=== PATIENT | male | born 1945 | race Caucasian/White ===

== ENCOUNTER → 2016-04-19 | Outpatient (CLI) | payer MEDICARE ==
[~2016-04-19] MED LIST: ASP81CT PO; ASPI-875 PO; ATR20T PO; MTP25TSR PO; TICA90TA PO
--- NOTE | 2016-04-25 07:51 | ECHOCARDIOGRAPHY REPORT ---
PROCEDURE PHYSICIAN: GREGG SEQUEIRA DATE OF PROCEDURE: 04/19/2016 TWO DIMENSIONAL ECHOCARDIOGRAM REPORT PRIMARY PHYSICIAN: Dr. Strong OTHER PHYSICIAN: Dr. Sequeira REFERRING PHYSICIAN: ORDERING PHYSICIAN: Isela Toro APRN INDICATION FOR THE PROCEDURE: 1. Shortness of breath. 2. Coronary artery disease. 3. Chronic obstructive pulmonary disease. MEASUREMENTS DERIVED VALUES LV DIAMETER (LAX) NORMALS NORMALS Diastolic 5.3 (3.6-5.2) Eject. Fract. (60%+/-6%) Systolic (2.3-3.9) Diastolic Vol. % Shortening (0.22-0.42) Systolic Vol. Aortic Root 3.7 IVS THICKNESS Diastolic 1.1 (0.6-1.1) LVPW THICKNESS Diastolic 1.2 (0.6-1.1) LA DIAMETER Systolic 3.7 (2.1-3.7) DESCRIPTION: Two-dimensional echocardiography shows normal global left ventricular systolic function without distinct regional wall motion abnormality. This study is technically somewhat difficult and not ideal for wall motion analysis. On the views available, there does not appear to be distinct regional wall motion abnormality. There appears to be mild aortic valve sclerosis. Doppler imaging shows trivial to mild mitral, aortic and tricuspid regurgitation. Mitral inflow is consistent with grade 1 diastolic dysfunction of the left ventricle. There is no Doppler evidence of significant valvular stenosis. There is no evidence of significant intracardiac shunt. Inferior vena cava does not appear to be dilated. Pulmonary artery systolic pressure could not be reliably estimated on this study. CONCLUSIONS: 1. Normal global left ventricular systolic function with an ejection fraction of approximately 60%. 2. Trivial to mild mitral, tricuspid and aortic regurgitation. 3. Mild aortic valve sclerosis without evidence of significant valvular stenosis. 4. Mild diastolic dysfunction of the left ventricle is suggested on this study. Job ID: [id number] Dictated Date: 04/24/2016 13:44:30 Health Safety And Environment Manager Date: 04/25/2016 07:42:36 / [email or web address]
== END ==
LOC: CARD 13:51
PROVIDERS: ATTEND Nurse Practitioner Family
DX: I25.10 Atherosclerotic heart disease of native coronary artery without angina pectoris (principal); E78.4 Other hyperlipidemia; J43.8 Other emphysema; R06.09 Other forms of dyspnea
CPT/HCPCS: 93306

== ENCOUNTER → 2017-08-13 | Outpatient (CLI) | payer MEDICARE | LOC: CARD 08:55 | PROVIDERS: ATTEND Internal Medicine Cardiovascular Disease | DX: I25.10 Atherosclerotic heart disease of native coronary artery without angina pectoris (principal); E78.5 Hyperlipidemia, unspecified | CPT/HCPCS: 93351 ==

== ENCOUNTER 2018-01-20 09:51 | Outpatient (CLI) | payer MEDICARE ==
[~2018-01-20] VITALS: Ht 170.2 cm; Wt 78.0 kg
[2018-01-20] MEDS ORDERED: METO-387 PO (15:17)
[2018-01-20] MEDS ORDERED: ASPI-999 PO (15:17)
[2018-01-20] MEDS ORDERED: ATOR40TA70 PO (15:17)
== END 2018-01-20 15:18 | disposition home or self-care (01) ==
LOC: PREOP 09:51
PROVIDERS: ATTEND Surgery
DX: Z01.818 Encounter for other preprocedural examination (principal)

== ENCOUNTER 2018-01-22 10:53 | Day surgery (SDC) | payer MEDICARE ==
[~2018-01-22] VITALS: Ht 170.2 cm; Wt 78.0 kg
[~2018-01-22 10:53] MED LIST changes: +ASPI-999 PO; +ATOR40TA70 PO; +METO-387 PO
--- OUTSIDE RECORDS SUMMARY | 2018-01-22 10:57 | XMS REPORT | Continuity of Care Document ---
Author Author [facility] Organization [facility] Address Unknown Phone Unavailable Allergies Active Description Code Type Severity Reaction Onset Reported/Identified Relationship to Patient Clinical Status Yes No Known Drug Allergies [id number] Drug Allergy Unknown N/A 03/20/2012 Medications There is no data. Problems Date Dx Coded Attending Type Code Diagnosis Diagnosed By 04/02/2012 Ot 272.4 HYPERLIPIDEMIA NEC/NOS 04/02/2012 Ot 414.01 CORONARY ATHEROSCLEROSIS OF [place] CORON 04/02/2012 Ot 477.9 ALLERGIC RHINITIS NOS 04/02/2012 Ot 794.30 ABN CARDIOVASC STUDY NOS 04/02/2012 Ot V17.49 FAMILY HISTORY OF OTHER CARDIOVASCULAR D 04/02/2012 Ot V58.66 LONG-TERM ( CURRENT) USE OF ASPIRIN 04/02/2012 Ot V58.69 OTH MED,LT, CURRENT USE 06/24/2012 ROCK NANCE MD Ot 414.01 CORONARY ATHEROSCLEROSIS OF [place] CORON 06/24/2012 ROCK NANCE MD Ot 414.2 CHRONIC TOTAL OCCLUSION OF CORONARY ANKIT 06/24/2012 ROCK NANCE MD Ot 786.59 CHEST PAIN NEC 06/24/2012 ROCK NANCE MD Ot V45.82 PERCUTANEOUS TRANSLUM CORON ANGIOPLASTY 06/24/2012 ROCK NANCE MD Ot V58.63 LONG-TERM(CURRENT)USE OF ANTIPLATELET/AN 06/24/2012 ROCK NANCE MD Ot V58.66 LONG-TERM (CURRENT) USE OF ASPIRIN 06/24/2012 ROCK NANCE MD Ot V58.69 OTH MED,LT,CURRENT USE 10/17/2015 BAIMAKATHERINE L CUPOLA OPERATOR Ot E78.4 OTHER HYPERLIPIDEMIA 10/17/2015 BAIMA KATHERINE L CUPOLA OPERATOR Ot I25.10 ATHSCL HEART DISEASE OF [place] CORONARY 10/17/2015 BAIMAKATHERINE L CUPOLA OPERATOR Ot R06.00 DYSPNEA, UNSPECIFIED 10/25/2015 BAIMA KATHERINE L CUPOLA OPERATOR Ot E78.4 OTHER HYPERLIPIDEMIA 10/25/2015 BAIMA, KATHERINE L CUPOLA OPERATOR Ot I25.10 ATHSCL HEART DISEASE OF [place] CORONARY 10/25/2015 BAIMA, KATHERINE L CUPOLA OPERATOR Ot R06.00 DYSPNEA, UNSPECIFIED 11/10/2015 BAIMA, KATHERINE L CUPOLA OPERATOR Ot E78.4 OTHER HYPERLIPIDEMIA 11/10/2015 BAIMA, KATHERINE L CUPOLA OPERATOR Ot I25.10 ATHSCL HEART DISEASE OF [place] CORONARY 11/10/2015 BAIMA, KATHERINE L CUPOLA OPERATOR Ot R06.00 DYSPNEA, UNSPECIFIED 03/08/2016 Ot 786.50 CHEST PAIN NOS 03/08/2016 SHAWN HUITRON CUPOLA OPERATOR Ot 786.05 SHORTNESS OF BREATH 03/08/2016 BAIMA, KATHERINE L CUPOLA OPERATOR Ot E78.4 OTHER HYPERLIPIDEMIA 03/08/2016 BAIMA, KATHERINE L CUPOLA OPERATOR Ot I25.10 ATHSCL HEART DISEASE OF [place] CORONARY 03/08/2016 BAIMA, KATHERINE L CUPOLA OPERATOR Ot R06.00 DYSPNEA, UNSPECIFIED 03/09/2016 BAIMA, KATHERINE L CUPOLA OPERATOR Ot E78.4 OTHER HYPERLIPIDEMIA 03/09/2016 BAIMA, KATHERINE L CUPOLA OPERATOR Ot I25.10 ATHSCL HEART DISEASE OF [place] CORONARY 03/09/2016 BAIMA, KATHERINE L CUPOLA OPERATOR Ot R06.00 DYSPNEA, UNSPECIFIED 03/20/2016 BAIMA, KATHERINE L CUPOLA OPERATOR Ot E78.4 OTHER HYPERLIPIDEMIA 03/20/2016 BAIMA, KATHERINE L CUPOLA OPERATOR Ot I25.10 ATHSCL HEART DISEASE OF [place] CORONARY 03/20/2016 BAIMA, KATHERINE L CUPOLA OPERATOR Ot R06.00 DYSPNEA, UNSPECIFIED 04/19/2016 BAIMA, KATHERINE L CUPOLA OPERATOR Ot E78.4 OTHER HYPERLIPIDEMIA 04/19/2016 BAIMA, KATHERINE L CUPOLA OPERATOR Ot I25.10 ATHSCL HEART DISEASE OF [place] CORONARY 04/19/2016 BAIMA, KATHERINE L CUPOLA OPERATOR Ot R06.00 DYSPNEA, UNSPECIFIED 04/20/2016 BAIMA, KATHERINE L CUPOLA OPERATOR Ot E78.4 OTHER HYPERLIPIDEMIA 04/20/2016 BAIMA, KATHERINE L CUPOLA OPERATOR Ot I25.10 ATHSCL HEART DISEASE OF [place] CORONARY 04/20/2016 BAIMA, KATHERINE L CUPOLA OPERATOR Ot J43.8 OTHER EMPHYSEMA 04/20/2016 BAIMA, KATHERINE L CUPOLA OPERATOR Ot R06.09 OTHER FORMS OF DYSPNEA 04/24/2016 BAIMA, KATHERINE L CUPOLA OPERATOR Ot E78.4 OTHER HYPERLIPIDEMIA 04/24/2016 BAIMA, KATHERINE L CUPOLA OPERATOR Ot I25.10 ATHSCL HEART DISEASE OF [place] CORONARY 04/24/2016 BAIMA, KATHERINE L CUPOLA OPERATOR Ot J43.8 OTHER EMPHYSEMA 04/24/2016 BAIMA, KATHERINE L CUPOLA OPERATOR Ot R06.09 OTHER FORMS OF DYSPNEA 05/17/2016 BAIMA, KATHERINE L CUPOLA OPERATOR Ot E78.4 OTHER HYPERLIPIDEMIA 05/17/2016 BAIMA, KATHERINE L CUPOLA OPERATOR Ot I25.10 ATHSCL HEART DISEASE OF [place] CORONARY 05/17/2016 BAIMA, KATHERINE L CUPOLA OPERATOR Ot J43.8 OTHER EMPHYSEMA 05/17/2016 BAIMA, KATHERINE L CUPOLA OPERATOR Ot R06.09 OTHER FORMS OF DYSPNEA 05/24/2016 BAIMA, KATHERINE L CUPOLA OPERATOR Ot E78.4 OTHER HYPERLIPIDEMIA 05/24/2016 BAIMA, KATHERINE L CUPOLA OPERATOR Ot I25.10 ATHSCL HEART DISEASE OF [place] CORONARY 05/24/2016 BAIMA, KATHERINE L CUPOLA OPERATOR Ot J43.8 OTHER EMPHYSEMA 05/24/2016 BAIMA, KATHERINE L CUPOLA OPERATOR Ot R06.09 OTHER FORMS OF DYSPNEA 06/19/2016 Ot 786.50 CHEST PAIN NOS 06/19/2016 SHAWN HUITRON CUPOLA OPERATOR Ot 786.05 SHORTNESS OF BREATH 06/19/2016 BAIMA, KATHERINE L CUPOLA OPERATOR Ot E78.4 OTHER HYPERLIPIDEMIA 06/19/2016 BAIMA, KATHERINE L CUPOLA OPERATOR Ot I25.10 ATHSCL HEART DISEASE OF [place] CORONARY 06/19/2016 BAIMA, KATHERINE L CUPOLA OPERATOR Ot R06.00 DYSPNEA, UNSPECIFIED 07/24/2017 BAIMA, KATHERINE L CUPOLA OPERATOR Ot E78.4 OTHER HYPERLIPIDEMIA 07/24/2017 BAIMA, KATHERINE L CUPOLA OPERATOR Ot I25.10 ATHSCL HEART DISEASE OF [place] CORONARY 07/24/2017 BAIMA, KATHERINE L CUPOLA OPERATOR Ot J43.8 OTHER EMPHYSEMA 07/24/2017 BAIMA, KATHERINE L CUPOLA OPERATOR Ot R06.09 OTHER FORMS OF DYSPNEA 08/15/2017 LAURENCE MICHAELS FACC, ALI FACP CCDS Ot E78.5 HYPERLIPIDEMIA, UNSPECIFIED 08/15/2017 LAURENCE MICHAELS FACC, ALI FACP CCDS Ot I25.10 ATHSCL HEART DISEASE OF [place] CORONARY 09/03/2017 LAURENCE MICHAELS FACC, ALI FACP CCDS Ot E78.5 HYPERLIPIDEMIA, UNSPECIFIED 09/03/2017 LAURENCE MICHAELS FACC, ALI FACP CCDS Ot I25.10 ATHSCL HEART DISEASE OF [place] CORONARY 09/20/2017 LAURENCE MICHAELS FACC, ALI FACP CCDS Ot E78.5 HYPERLIPIDEMIA, UNSPECIFIED 09/20/2017 LAURENCE MICHAELS FACC, ALI FACP CCDS Ot I25.10 ATHSCL HEART DISEASE OF [place] CORONARY Procedures There is no data. Results There is no data. Encounters ACCT No. Visit Date/Time Discharge Status Pt. Type Provider Facility Loc./Unit Complaint [id number] 12/26/2017 13:00:00 12/26/2017 13:00:00 CAN Preadmit ALTAGRACIA MANCILLA MD [facility] PREOP COLONOSCOPY [id number] 08/13/2017 08:55:00 08/13/2017 23:59:59 CLS Outpatient GREGG DANG MD, FACC FACP CCDS [facility] CARD I25.10 CAD [id number] 04/19/2016 13:51:00 04/19/2016 23:59:59 CLS Outpatient KATHERINE FRIAS CUPOLA OPERATOR [facility] CARD COPD,[place],CAD [id number] 10/11/2015 11:51:00 10/11/2015 23:59:59 CLS Outpatient KATHERINE FRIAS CUPOLA OPERATOR [facility] CARD CAD; DYSPNEA [id number] 07/30/2012 13:50:00 07/30/2012 23:59:59 CLS Outpatient SHAWN HUITRON CUPOLA OPERATOR [facility] CARD SOB [id number] 06/23/2012 07:03:00 06/24/2012 09:40:00 DIS Outpatient ROCK NANCE MD [facility] CAD,HYPERLIPIDEMIA [id number] 04/01/2012 06:56:00 Document Registration [id number] 03/20/2012 07:58:00 Document Registration
[2018-01-22] MEDS ORDERED: NS IV 500 ML 500 ML IV PRN (11:03)
--- NOTE | 2018-01-22 11:09 | Conscious Sedation/ASA ---
Conscious Sedation Pre-Proced Time 11:00 ASA Score 2 For ASA 3 and 4: Consider anesthesia and medical clearance. Also, for patients with a history of failed moderate sedation consider anesthesia. Airway Lungs Heart ASA score ASA 1: a normal healthy patient ASA 2: a patient with a mild systemic disease (mid diabetes, controlled hypertension, obesity ASA 3: a patient with a severe systemic disease that limits activity (angina , COPD, prior Myocardial infarction) ASA 4: a patient with an incapacitating disease that is a constant threat to life (CHF, renal failure) ASA 5: a moribund patient not expected to survive 24 hrs. (ruptured aneurysm) ASA 6: a declared brain patient whose organs are being harvested. For emergent operations, add the letter E after the classification Mallampati Classification Grade 2 Sedation Plan Analgesia, Amnesia, Plan communicated to team members, Discussed options with patient/fam, Discussed risks with patient/fam The patient is an appropriate candidate to undergo the planned procedure, sedation, and anesthesia. The patient immediately re-assessed prior to indication. ALTAGRACIA MANCILLA MD Jan 22, 2018 11:09 am
--- NOTE | 2018-01-22 11:10 | Progress Note-Pre Operative ---
Pre-Operative Progress Note H&P Reviewed The H&P was reviewed, patient examined and no changes noted. Date Seen by Provider: Jan 22, 2018 Time Seen by Provider: 11:00 Date H&P Reviewed: Jan 22, 2018 Time H&P Reviewed: 11:00 Pre-Operative Diagnosis: screening colonoscopy ALTAGRACIA MANCILLA MD Jan 22, 2018 11:10 am
[2018-01-22] MEDS ORDERED: HYDROcodone/APAP 5 MG/325 MG (LORTAB) TAB PO PRN (11:15)
[2018-01-22] MEDS ORDERED: fentaNYL INJECTION 100 MCG/2 ML AMP IVP ONE (11:15)
[2018-01-22] MEDS ORDERED: MIDAZOLAM 2 MG/2 ML (VERSED) VIAL IVP ONE (11:15)
[2018-01-22] MEDS ORDERED: ACETAMINOPHEN 325 MG TABLET PO PRN (11:15)
[2018-01-22] MEDS ORDERED: morphine INJ 10 MG/ML 1ML (SYR OR VIAL) IV PRN (11:15)
[2018-01-22] MEDS ORDERED: ONDANSETRON 4 MG/2 ML (SDV) Z0FRAN IV PRN (11:15)
[2018-01-22] MEDS ORDERED: LIDOCAINE JELLY 2% 6 ML SYRINGE MM PRN (11:15)
[2018-01-22] MEDS ORDERED: NS IV 500 ML 500 ML ONE (11:22)
[2018-01-22 11:34] VITALS: BP 141/81
[2018-01-22] MEDS ORDERED: LIDOCAINE JELLY 2% 6 ML SYRINGE ONE (12:42)
[2018-01-22] MEDS ORDERED: MIDAZOLAM 2 MG/2 ML (VERSED) VIAL ONE ×4 (12:42→12:43)
[2018-01-22] MEDS ORDERED: fentaNYL INJECTION 100 MCG/2 ML AMP ONE ×2 (12:42)
[2018-01-22 13:40] VITALS: BP 132/84
[2018-01-22 14:30] VITALS: BP 130/73
[2018-01-22 14:33] VITALS: BP 130/73
--- NOTE | 2018-01-22 23:23 | OPERATIVE REPORT ---
DATE OF SERVICE: 01/22/2018 ATTENDING PRIMARY CARE PHYSICIAN: Dr. Strong. PREOPERATIVE DIAGNOSIS: Screening colonoscopy. POSTOPERATIVE DIAGNOSIS: Mild sigmoid diverticulosis. PROCEDURE: Colonoscopy. SURGEON: Altagracia Mancilla MD ANESTHESIA: Conscious sedation. ESTIMATED BLOOD LOSS: Minimal. FINDINGS: No significant hemorrhoids. Prostate gland was palpable and appeared normal. Mild sigmoid diverticulosis. Remainder of the colon was normal. There were no polyps identified. DISPOSITION: The patient tolerated the procedure well. INDICATIONS: The patient is a 72-year-old male in need of a screening colonoscopy. His last colonoscopy was approximately 14 years ago and reports this to be normal. He states that for the most part he is doing well, does not report any major issues with diarrhea nor constipation as well as no red blood per rectum nor any dark tarry stools. He also does not report any family history of colon cancer. DESCRIPTION OF PROCEDURE: The patient was brought to the endoscopy suite, laid in the left lateral decubitus position. After adequate IV pain sedative medications and conscious sedation anesthesia, a digital rectal examination was performed. No significant hemorrhoids identified. Normal sphincter tone was felt and there were no palpable masses. Prostate gland was palpable and appeared normal. The endoscope was then intubated to the anus and rectum gently insufflated. The endoscope was then advanced to the valves of [place] in the rectum with no polyps or any neoplasms identified. Through the sigmoid colon, a mild sigmoid diverticulosis identified. There were no mucosal inflammatory changes to indicate any active diverticulitis. The endoscope was then advanced to the remainder of the descending, transverse, and ascending colon to the cecum. These segments were normal. There were no polyps or any neoplasms identified throughout the colon or rectum. The endoscope was then slowly withdrawn while taking a second look and suctioning residual air with no additional findings. The patient tolerated the procedure well. We will recommend continued medical management with a high fiber diet with at least 30 grams of fiber per day as well as at least 64 fluid ounces of water to promote soft stools on a daily basis. He does not need another colonoscopy for another 10 years. Job ID: [id number] DocumentID: [id number] Dictated Date: 01/22/2018 13:19:03 Full Time Paramedic Date: 01/22/2018 22:46:47 Dictated By: ALTAGRACIA MANCILLA MD
== END 2018-01-22 14:33 | disposition home or self-care (01) ==
LOC: ENDO 10:53
PROVIDERS: ATTEND Surgery
DX: Z12.11 Encounter for screening for malignant neoplasm of colon (principal); K57.30 Diverticulosis of large intestine without perforation or abscess without bleeding; E78.00 Pure hypercholesterolemia, unspecified; I10 Essential (primary) hypertension; Z79.899 Other long term (current) drug therapy; Z79.82 Long term (current) use of aspirin; Z87.891 Personal history of nicotine dependence

== ENCOUNTER 2018-05-27 09:51 | Day surgery (SDC) | payer MEDICARE ==
[2018-05-27] VITALS (11 sets, daily range): BP systolic 101–142; BP diastolic 62–96
[~2018-05-27] VITALS: Ht 170.2 cm; Wt 77.1 kg
--- OUTSIDE RECORDS SUMMARY | 2018-05-27 09:54 | XMS REPORT | Continuity of Care Document ---
Author Author [facility] Organization [facility] Address Unknown Phone Unavailable Allergies Active Description Code Type Severity Reaction Onset Reported/Identified Relationship to Patient Clinical Status Yes No Known Drug Allergies [id number] Drug Allergy Unknown N/A 03/20/2012 Medications There is no data. Problems Date Dx Coded Attending Type Code Diagnosis Diagnosed By 04/02/2012 Ot 272.4 HYPERLIPIDEMIA NEC/NOS 04/02/2012 Ot 414.01 CORONARY ATHEROSCLEROSIS OF [place] CORON 04/02/2012 Ot 477.9 ALLERGIC RHINITIS NOS 04/02/2012 Ot 794.30 ABN CARDIOVASC STUDY NOS 04/02/2012 Ot V17.49 FAMILY HISTORY OF OTHER CARDIOVASCULAR D 04/02/2012 Ot V58.66 LONG-TERM ( CURRENT) USE OF ASPIRIN 04/02/2012 Ot V58.69 OTH MED,LT, CURRENT USE 06/24/2012 ROCK NANCE MD Ot 414.01 CORONARY ATHEROSCLEROSIS OF [place] CORON 06/24/2012 ROCK NANCE MD Ot 414.2 [...] V58.69 OTH MED,LT,CURRENT USE 10/17/2015 BAIMAKATHERINE L PRINTING ROLLER POLISHER Ot E78.4 OTHER HYPERLIPIDEMIA 10/17/2015 BAIMA KATHERINE L PRINTING ROLLER POLISHER Ot I25.10 ATHSCL HEART DISEASE OF [place] CORONARY 10/17/2015 BAIMAKATHERIEN L PRINTING ROLLER POLISHER Ot R06.00 DYSPNEA, UNSPECIFIED 10/25/2015 BAIMA KATHERINE L PRINTING ROLLER POLISHER Ot E78.4 OTHER HYPERLIPIDEMIA 10/25/2015 BAIMA, KATHERINE L PRINTING ROLLER POLISHER Ot I25.10 ATHSCL HEART DISEASE OF [place] CORONARY 10/25/2015 BAIMA, KATHERINE L PRINTING ROLLER POLISHER Ot R06.00 DYSPNEA, UNSPECIFIED 11/10/2015 BAIMA, KATHERINE L PRINTING ROLLER POLISHER Ot E78.4 OTHER HYPERLIPIDEMIA 11/10/2015 BAIMA, KATHERINE L PRINTING ROLLER POLISHER Ot I25.10 ATHSCL HEART DISEASE OF [place] CORONARY 11/10/2015 BAIMA, KATHERINE L PRINTING ROLLER POLISHER Ot R06.00 DYSPNEA, UNSPECIFIED 03/08/2016 Ot 786.50 CHEST PAIN NOS 03/08/2016 SHAWN HUITRON PRINTING ROLLER POLISHER Ot 786.05 SHORTNESS OF BREATH 03/08/2016 BAIMA, KATHERINE L PRINTING ROLLER POLISHER Ot E78.4 OTHER HYPERLIPIDEMIA 03/08/2016 BAIMA, KATHERINE L PRINTING ROLLER POLISHER Ot I25.10 ATHSCL HEART DISEASE OF [place] CORONARY 03/08/2016 BAIMA, KATHERINE L PRINTING ROLLER POLISHER Ot R06.00 DYSPNEA, UNSPECIFIED 03/09/2016 BAIMA, KATHERINE L PRINTING ROLLER POLISHER Ot E78.4 OTHER HYPERLIPIDEMIA 03/09/2016 BAIMA, KATHERINE L PRINTING ROLLER POLISHER Ot I25.10 ATHSCL HEART DISEASE OF [place] CORONARY 03/09/2016 BAIMA, KATHERINE L PRINTING ROLLER POLISHER Ot R06.00 DYSPNEA, UNSPECIFIED 03/20/2016 BAIMA, KATHERINE L PRINTING ROLLER POLISHER Ot E78.4 OTHER HYPERLIPIDEMIA 03/20/2016 BAIMA, KATHERINE L PRINTING ROLLER POLISHER Ot I25.10 ATHSCL HEART DISEASE OF [place] CORONARY 03/20/2016 BAIMA, KATHERINE L PRINTING ROLLER POLISHER Ot R06.00 DYSPNEA, UNSPECIFIED 04/19/2016 BAIMA, KATHERINE L PRINTING ROLLER POLISHER Ot E78.4 OTHER HYPERLIPIDEMIA 04/19/2016 BAIMA, KATHERINE L PRINTING ROLLER POLISHER Ot I25.10 ATHSCL HEART DISEASE OF [place] CORONARY 04/19/2016 BAIMA, KATHERINE L PRINTING ROLLER POLISHER Ot R06.00 DYSPNEA, UNSPECIFIED 04/20/2016 BAIMA, KATHERINE L PRINTING ROLLER POLISHER Ot E78.4 OTHER HYPERLIPIDEMIA 04/20/2016 BAIMA, KATHERINE L PRINTING ROLLER POLISHER Ot I25.10 ATHSCL HEART DISEASE OF [place] CORONARY 04/20/2016 BAIMA, KATHERINE L PRINTING ROLLER POLISHER Ot J43.8 OTHER EMPHYSEMA 04/20/2016 BAIMA, KATHERINE L PRINTING ROLLER POLISHER Ot R06.09 OTHER FORMS OF DYSPNEA 04/24/2016 BAIMA, KATHERINE L PRINTING ROLLER POLISHER Ot E78.4 OTHER HYPERLIPIDEMIA 04/24/2016 BAIMA, KATHERINE L PRINTING ROLLER POLISHER Ot I25.10 ATHSCL HEART DISEASE OF [place] CORONARY 04/24/2016 BAIMA, KATHERINE L PRINTING ROLLER POLISHER Ot J43.8 OTHER EMPHYSEMA 04/24/2016 BAIMA, KATHERINE L PRINTING ROLLER POLISHER Ot R06.09 OTHER FORMS OF DYSPNEA 05/17/2016 BAIMA, KATHERINE L PRINTING ROLLER POLISHER Ot E78.4 OTHER HYPERLIPIDEMIA 05/17/2016 BAIMA, KATHERINE L PRINTING ROLLER POLISHER Ot I25.10 ATHSCL HEART DISEASE OF [place] CORONARY 05/17/2016 BAIMA, KATHERINE L PRINTING ROLLER POLISHER Ot J43.8 OTHER EMPHYSEMA 05/17/2016 BAIMA, KATHERINE L PRINTING ROLLER POLISHER Ot R06.09 OTHER FORMS OF DYSPNEA 05/24/2016 BAIMA, KATHERINE L PRINTING ROLLER POLISHER Ot E78.4 OTHER HYPERLIPIDEMIA 05/24/2016 BAIMA, KATHERINE L PRINTING ROLLER POLISHER Ot I25.10 ATHSCL HEART DISEASE OF [place] CORONARY 05/24/2016 BAIMA, KATHERINE L PRINTING ROLLER POLISHER Ot J43.8 OTHER EMPHYSEMA 05/24/2016 BAIMA, KATHERINE L PRINTING ROLLER POLISHER Ot R06.09 OTHER FORMS OF DYSPNEA 06/19/2016 Ot 786.50 CHEST PAIN NOS 06/19/2016 SHAWN HUITRON PRINTING ROLLER POLISHER Ot 786.05 SHORTNESS OF BREATH 06/19/2016 BAIMA, KATHERINE L PRINTING ROLLER POLISHER Ot E78.4 OTHER HYPERLIPIDEMIA 06/19/2016 BAIMA, KATHERINE L PRINTING ROLLER POLISHER Ot I25.10 ATHSCL HEART DISEASE OF [place] CORONARY 06/19/2016 BAIMA, KATHERINE L PRINTING ROLLER POLISHER Ot R06.00 DYSPNEA, UNSPECIFIED 07/24/2017 BAIMA, KATHERINE L PRINTING ROLLER POLISHER Ot E78.4 OTHER HYPERLIPIDEMIA 07/24/2017 BAIMA, KATHERINE L PRINTING ROLLER POLISHER Ot I25.10 ATHSCL HEART DISEASE OF [place] CORONARY 07/24/2017 BAIMA, KATHERINE L PRINTING ROLLER POLISHER Ot J43.8 OTHER EMPHYSEMA 07/24/2017 BAIMA, KATHERINE L PRINTING ROLLER POLISHER Ot R06.09 OTHER FORMS OF DYSPNEA 08/15/2017 LAURENCE MICHAELS FACC, ALI FACP CCDS Ot E78.5 HYPERLIPIDEMIA, UNSPECIFIED 08/15/2017 LAURENCE MICHAELS FACC, ALI FACP CCDS Ot I25.10 ATHSCL HEART DISEASE OF [place] CORONARY 09/03/2017 LAURENCE MICHAELS FACC, ALI FACP CCDS Ot E78.5 HYPERLIPIDEMIA, UNSPECIFIED 09/03/2017 LAURENCE MICHAELS FACC, ALI FACP CCDS Ot I25.10 ATHSCL HEART DISEASE OF [place] CORONARY 09/20/2017 LAURENCE MICHAELS FAC, ALI FACP CCDS Ot E78.5 HYPERLIPIDEMIA, UNSPECIFIED 09/20/2017 LAURENCE MICHAELS FACC, ALI FACP CCDS Ot I25.10 ATHSCL HEART DISEASE OF [place] CORONARY 01/20/2018 ALTAGRACIA MANCILLA MD, Ot Z01.818 ENCOUNTER FOR OTHER PREPROCEDURAL EXAMIN 01/22/2018 BAIMA, KATHERINE L PRINTING ROLLER POLISHER Ot E78.4 OTHER HYPERLIPIDEMIA 01/22/2018 BAIMA, KATHERINE L PRINTING ROLLER POLISHER Ot I25.10 ATHSCL HEART DISEASE OF [place] CORONARY 01/22/2018 BAIMA, KATHERINE L PRINTING ROLLER POLISHER Ot R06.00 DYSPNEA, UNSPECIFIED 01/22/2018 BAIMA, KATHERINE L PRINTING ROLLER POLISHER Ot E78.4 OTHER HYPERLIPIDEMIA 01/22/2018 BAIMA, KATHERINE L PRINTING ROLLER POLISHER Ot I25.10 ATHSCL HEART DISEASE OF [place] CORONARY 01/22/2018 BAIMA, KATHERINE L PRINTING ROLLER POLISHER Ot J43.8 OTHER EMPHYSEMA 01/22/2018 BAIMA, KATHERINE L PRINTING ROLLER POLISHER Ot R06.09 OTHER FORMS OF DYSPNEA 01/22/2018 LAURENCE MICHAELS FAC, ALI FACP CCDS Ot E78.5 HYPERLIPIDEMIA, UNSPECIFIED 01/22/2018 LAURENCE MICHAELS [facility], ALI FACP CCDS Ot I25.10 ATHSCL HEART DISEASE OF [place] CORONARY 01/22/2018 ALTAGRACIA MANCILLA MD Ot E78.00 PURE HYPERCHOLESTEROLEMIA, UNSPECIFIED 01/22/2018 ALTAGRACIA MANCILLA MD Ot I10 ESSENTIAL (PRIMARY) HYPERTENSION 01/22/2018 ALTAGRACIA MANCILLA MD, Ot K57.30 DVRTCLOS OF LG INT W/O PERFORATION OR AB 01/22/2018 ALTAGRACIA MANCILLA MD, Ot Z12.11 ENCOUNTER FOR SCREENING FOR MALIGNANT NE 01/22/2018 ALTAGRACIA MANCILLA MD Ot Z79.82 CUSTODIAL (CURRENT) USE OF ASPIRIN 01/22/2018 ALTAGRACIA MANCILLA MD, Ot Z79.899 OTHER CUSTODIAL (CURRENT) DRUG THERAPY 01/22/2018 ALTAGRACIA MANCILLA MD Ot Z87.891 PERSONAL HISTORY OF NICOTINE DEPENDENCE 01/23/2018 ALTAGRACIA MANCILLA MD Ot E78.00 PURE HYPERCHOLESTEROLEMIA, UNSPECIFIED 01/23/2018 ALTAGRACIA MANCILLA MD Ot I10 ESSENTIAL (PRIMARY) HYPERTENSION 01/23/2018 ALTAGRACIA MANCILLA MD Ot K57.30 DVRTCLOS OF LG INT W/O PERFORATION OR AB 01/23/2018 ALTAGRACIA MANCILLA MD Ot Z12.11 ENCOUNTER FOR SCREENING FOR MALIGNANT NE 01/23/2018 ALTAGRACIA MANCILLA MD Ot Z79.82 CUSTODIAL (CURRENT) USE OF ASPIRIN 01/23/2018 ALTAGRACIA MANCILLA MD Ot Z79.899 OTHER CUSTODIAL (CURRENT) DRUG THERAPY 01/23/2018 ALTAGRACIA MANCILLA MD, Ot Z87.891 PERSONAL HISTORY OF NICOTINE DEPENDENCE 01/27/2018 ALTAGRACIA MANCILLA MD Ot Z01.818 ENCOUNTER FOR OTHER PREPROCEDURAL EXAMIN 01/28/2018 ALTAGRACIA MANCILLA MD Ot E78.00 PURE HYPERCHOLESTEROLEMIA, UNSPECIFIED 01/28/2018 ALTAGRACIA MANCILLA MD Ot I10 ESSENTIAL (PRIMARY) HYPERTENSION 01/28/2018 ALTAGRACIA MANCILLA MD Ot K57.30 DVRTCLOS OF LG INT W/O PERFORATION OR AB 01/28/2018 ALTAGRACIA MANCILLA MD Ot Z12.11 ENCOUNTER FOR SCREENING FOR MALIGNANT NE 01/28/2018 ALTAGRACIA MANCILLA MD Ot Z79.82 CUSTODIAL (CURRENT) USE OF ASPIRIN 01/28/2018 ALTAGRACIA MANCILLA MD Ot Z79.899 OTHER CUSTODIAL (CURRENT) DRUG THERAPY 01/28/2018 ALTAGRACIA MANCILLA MD, Ot Z87.891 PERSONAL HISTORY OF NICOTINE DEPENDENCE 05/16/2018 KATHERINE FRIAS PRINTING ROLLER POLISHER Ot E78.4 OTHER HYPERLIPIDEMIA 05/16/2018 KATHERINE FRIAS PRINTING ROLLER POLISHER Ot I25.10 ATHSCL HEART DISEASE OF [place] CORONARY 05/16/2018 KATHERINE FRIAS PRINTING ROLLER POLISHER Ot R06.00 DYSPNEA, UNSPECIFIED Procedures There is no data. Results There is no data. Encounters ACCT No. Visit Date/Time Discharge Status Pt. Type Provider Facility Loc./Unit Complaint [id number] 01/22/2018 10:53:00 01/22/2018 14:33:00 DIS Outpatient ALTAGRACIA MANCILLA MD [facility] ENDO SCREENING [id number] 01/20/2018 09:51:00 01/20/2018 15:18:00 DIS Outpatient ALTAGRACIA MANCILLA MD [facility] PREOP COLONOSCOPY [id number] 08/13/2017 08:55:00 08/13/2017 23:59:59 CLS Outpatient LAURENCE MICHAELS FACChris, GREGG SERRATO CCDS [facility] CARD I25.10 CAD [id number] 04/19/2016 13:51:00 04/19/2016 23:59:59 CLS Outpatient KATHERINE FRIAS [employer] [facility] COPD,[place],CAD [id number] 10/11/2015 11:51:00 10/11/2015 23:59:59 CLS Outpatient KATHERINE FRIAS [employer] [facility] CARD CAD; DYSPNEA [id number] 07/30/2012 13:50:00 07/30/2012 23:59:59 CLS Outpatient SHAWN HUITRON [employer] [facility] CARD SOB [id number] 06/23/2012 07:03:00 06/24/2012 09:40:00 DIS Outpatient ROCK NANCE MD [facility] CATH CAD,HYPERLIPIDEMIA [id number] 05/27/2018 12:00:00 PEN Preadmit LAURENCE MICHAELS FACChris, GREGG SERRATO CCDS [facility] CATH SOB,FATIGUE,COPD,CAD [id number] 04/01/2012 06:56:00 Document Registration [id number] 03/20/2012 07:58:00 Document Registration
[2018-05-27] MEDS ORDERED: LIDOCAINE 1% INJ 20 ML 20 ML VIAL ONE (10:05)
[2018-05-27] MEDS ORDERED: HEParin 1000 UNIT/ML (10ML VIAL) FOR BOLUS ONE (10:05)
[2018-05-27] MEDS ORDERED: NS IV 1000 ML 3,000 ML ONE (10:05)
[2018-05-27] MEDS ORDERED: NS IV 1000 ML 1,000 ML IV SCH ×2 (10:30→15:16)
[2018-05-27 10:37] LABS: HEMOGLOBIN 17.1 G/DL (13.3-17.7); MEAN PLATELET VOLUME 9.5 FL (7.4-10.4); RED CELL DISTRIBUTION WIDTH 12.2 % (10.0-14.5); WHITE BLOOD COUNT 4.3 10^3/uL (4.3-11.0)
[2018-05-27 10:47] LABS: INR 0.9 (0.8-1.4); PROTHROMBIN TIME PATIENT 12.7 SEC (12.2-14.7)
[2018-05-27 10:53] LABS: ALANINE AMINOTRANSFERASE 22 U/L (0-55); ALBUMIN 4.4 GM/DL (3.2-4.5); ALKALINE PHOSPHATASE 67 U/L (40-136); BILIRUBIN,TOTAL 1.2 MG/DL (0.1-1.0); BUN/CREATININE RATIO 15; CALCIUM 9.6 MG/DL (8.5-10.1); CARBON DIOXIDE 27 MMOL/L (21-32); CHLORIDE 103 MMOL/L (98-107); CHOLESTEROL 168 MG/DL (< 200); CREATININE SERUM 1.06 MG/DL (0.60-1.30); GFR ESTIMATED > 60; GLUCOSE 85 MG/DL (70-105); HDL CHOLESTEROL 55 MG/DL (40-60); POTASSIUM 3.8 MMOL/L (3.6-5.0); SODIUM 140 MMOL/L (135-145); TOTAL PROTEIN 7.4 GM/DL (6.4-8.2); TRIGLYCERIDES 90 MG/DL (<150); VLDL CHOLESTEROL 18 MG/DL (5-40)
[2018-05-27] MEDS ORDERED: MIDAZOLAM 5 MG/5 ML (VERSED) VIAL ONE (13:52)
[2018-05-27] MEDS ORDERED: fentaNYL INJECTION 100 MCG/2 ML AMP ONE (13:53)
[2018-05-27] MEDS ORDERED: NITRO DRIP 25000 MCG/D5W 0 ML IV ONE (14:16)
[2018-05-27] MEDS ORDERED: EPTIFIBATIDE BOLUS 0 ML IV ONE (14:17)
--- NOTE | 2018-05-27 15:15 | Cardiac Procedure Note-CS/ASA ---
Pre-Procedure Note Pre-Op Procedure Note H&P Reviewed The H&P was reviewed, patient examined and no changes noted. Date H&P Reviewed: May 27, 2018 Time H&P Reviewed: 14:30 Conscious Sedation Pre-Proced Time 14:30 ASA Score 3 For ASA 3 and 4: Consider anesthesia and medical clearance. Also, for patients with a history of failed moderate sedation consider anesthesia. Airway Lungs Heart ASA score ASA 1: a normal healthy patient ASA 2: a patient with a mild systemic disease (mid diabetes, controlled hypertension, obesity ASA 3: a patient with a severe systemic disease that limits activity (angina , COPD, prior Myocardial infarction) ASA 4: a patient with an incapacitating disease that is a constant threat to life (CHF, renal failure) ASA 5: a moribund patient not expected to survive 24 hrs. (ruptured aneurysm) ASA 6: a declared brain- patient whose organs are being harvested. For emergent operations, add the letter E after the classification Mallampati Classification Grade 2 Sedation Plan Analgesia, Amnesia, Plan communicated to team members, Discussed options with patient/fam, Discussed risks with patient/fam The patient is an appropriate candidate to undergo the planned procedure, sedation, and anesthesia. The patient immediately re-assessed prior to indication. GREGG DANG MD FACP FAC CCDS May 27, 2018 15:15
--- NOTE | 2018-05-27 15:21 | Discharge Inst-Post CATH ---
Discharge Inst-CATH/EP Post Cardiac Cath/EP D/C Inst Follow Up/Plan F/u with Dr Sequeira in 2-3 weeks CARDIAC CATH DISCHARGE INSTRUCTIONS *Hold Metformin for 48 hours post heart cath. ACTIVITY * Go Home directly and rest. * Limit activity of the leg (or wrist if it was used) for 7 days including aerobics, swimming, jogging, bicycling, etc. * Restrict stair-climbing for 7 days if possible, if not, climb up with your non -cath leg, then bring together on the same step. * Avoid lifting, pushing, pulling or excessive movement of the affected extremity for 7 days. * Customary sexual activity may be resumed after 2 days-use caution not to use a position that strains or causes pain to the affected extremity. * No driving for 24 hours. * NO SMOKING. * Avoid straining for bowel movements for 7 days. * Gentle walking on level ground is allowed. * Returning to work will depend on the type of procedure and the results. Your doctor will discuss this with you. CALL YOUR DOCTOR FOR ANY OF THE FOLLOWING: *If bleeding from the puncture site occurs- Apply gentle pressure to site with clean cloth and call your doctor or EMS. * If a knot or lump forms under the skin, increases in size, or causes pain. * If bruising appears to be worsening or moving further down your leg instead of disappearing. * Temperature above 101 F. CARE OF YOUR GROIN INCISION; * Bruising or purple discoloration of the skin near the puncture site is common. * You may shower only, no bathtub bathing for 5 days. Be careful to avoid slipping as your leg may feel stiff. * If a closure device was used on your femoral artery, please see the attached guide regarding care of the device and your leg. * Leave the dressing on, until removed by office staff. CARE OF YOUR WRIST INCISION; * Bruising or purple discoloration of the skin near the puncture site is common. * You may shower. * DO NOT submerge wrist. * Leave dressing on, until removed by office staff.. GREGG SEQUEIRA MD [facility] CCDS May 27, 2018 15:21
--- NOTE | 2018-05-27 15:22 | Discharge Inst-Cardiology ---
Discharge Inst-Cardiac Discharge Medications Continued Medications: Aspirin (Aspirin) 81 Mg Tab.chew 81 MG PO DAILY, TAB Atorvastatin Calcium (Atorvastatin Calcium) 40 Mg Tablet 40 MG PO HS, TAB Metoprolol Succinate (Metoprolol Succinate) 25 Mg Tab.er.24h 25 MG PO DAILY, TAB Orders-Post D/C & Referrals Pneu Vac Indicated: Yes GREGG DANG MD FACP FAC CCDS May 27, 2018 15:22
[2018-05-27] MEDS ORDERED: PATIENT MAY USE OWN MEDS, ALL PO SCH (15:30)
--- NOTE | 2018-05-27 16:15 | CARDIAC CATHETERIZATION ---
DATE OF SERVICE: 05/27/2018 The patient is a 73-year-old man with known coronary artery disease who recently had an abnormal stress test. Cardiac catheterization was carried out today after having obtained an informed consent. PROCEDURE IN DETAIL: He was brought to the cardiac catheterization laboratory in a fasting state. Right groin was prepared and draped in usual sterile fashion. A 1% lidocaine was used for local anesthesia. Modified Seldinger technique was used to advance a 5-Brazilian sheath into the right femoral artery. We carried out angiography of the right femoral artery through the sheath. We used a 5-Brazilian JL4 catheter for left coronary angiography and a 5-Brazilian JR4 catheter for right coronary angiography. We used 5-Brazilian pigtail catheter for left heart catheterization, left ventricular angiography. HEMODYNAMICS: Left ventricular end-diastolic pressure was 7 mmHg. There is no significant pressure gradient on pullback across the aortic valve. Ascending aortic pressure was 117/56 with a mean of 79 mmHg. CORONARY ANGIOGRAPHY: Coronary calcification is seen. Left main coronary artery does not exhibit significant disease. Left anterior descending artery has 70% proximal and 70% mid vessel stenosis. The first obtuse marginal branch, left circumflex artery has 70% in-stent restenosis. The second obtuse marginal vessel, left circumflex artery has 80% to 90% in-stent restenosis. The right coronary artery appears to be chronically occluded in its mid portion and reconstitutes via bridging collaterals. There are also left to right collaterals. LEFT VENTRICULAR ANGIOGRAPHY: Left ventricular angiography was carried out in the right anterior oblique projection. Global left ventricular systolic function is well preserved. Left ventricular ejection fraction 55% to 60%. CONCLUSIONS: 1. Multivessel coronary artery disease consisting of 70% proximal mid vessel stenosis of the left anterior descending, 70% in-stent restenosis of the first obtuse marginal, 80% to 90% in-stent restenosis of the second obtuse marginal, mid vessel occlusion of the right coronary with distal reconstitution via bridging collaterals and the left to right collaterals. 2. Well-preserved global left ventricular systolic function with ejection fraction of 55% to 60%. 3. Normal left ventricular end-diastolic pressure. DISCUSSION AND RECOMMENDATIONS: Based on results of the study, it appears that coronary artery bypass surgery may be his best treatment option. I spoke with him and his . I called Dr. Correia of the cardiovascular surgical services at [facility]. Dr. Vetsch has agreed to see the patient tomorrow. If, for some reason, coronary artery bypass surgery is not felt to be the best treatment option for him, we can consider staged angioplasty of his multiple lesions. We have asked him to continue his current cardiac regimen. Job ID: [id number] DocumentID: [id number] Dictated Date: 05/27/2018 15:10:31 Line Producer Date: 05/27/2018 16:14:41 Dictated By: GREGG DANG MD, MA, FACP, FACC, MTDD
== END 2018-05-27 18:27 | disposition home or self-care (01) ==
LOC: CATH 09:51 → ICU 14:54 → CATH 18:27
PROVIDERS: ATTEND Internal Medicine Cardiovascular Disease
DX: I25.10 Atherosclerotic heart disease of native coronary artery without angina pectoris (principal); T82.855A Stenosis of coronary artery stent, initial encounter; E78.5 Hyperlipidemia, unspecified; J44.9 Chronic obstructive pulmonary disease, unspecified; I65.23 Occlusion and stenosis of bilateral carotid arteries; I08.3 Combined rheumatic disorders of mitral, aortic and tricuspid valves; Z79.82 Long term (current) use of aspirin; Z79.899 Other long term (current) drug therapy; Z87.891 Personal history of nicotine dependence; Z95.5 Presence of coronary angioplasty implant and graft
CPT/HCPCS: 36415; 80053; 80061; 85027; 85610; 85730; 87081; 93005; 93458

== ENCOUNTER 2018-11-03 08:13 | Outpatient (RCR) | payer MEDICARE | END 2018-11-04 | disposition home or self-care (01) | LOC: CR 08:13 | PROVIDERS: ATTEND Internal Medicine Cardiovascular Disease | DX: Z48.812 Encounter for surgical aftercare following surgery on the circulatory system (principal); Z95.1 Presence of aortocoronary bypass graft | CPT/HCPCS: 93798 ==

== ENCOUNTER 2018-11-10 08:53 | Outpatient (RCR) | payer MEDICARE | END 2019-02-03 | disposition home or self-care (01) | LOC: CR 08:53 | PROVIDERS: ATTEND Internal Medicine Cardiovascular Disease | DX: Z48.812 Encounter for surgical aftercare following surgery on the circulatory system (principal); Z95.1 Presence of aortocoronary bypass graft | CPT/HCPCS: 93798 ==

== ENCOUNTER → 2022-12-11 | Outpatient (CLI) | payer MEDICARE ==
[~2022-12-11] VITALS: Ht 170 cm; Wt 72.0 kg
[~2022-12-11] MED LIST changes: -METO-387 PO; +REGADENOSON 0.4 MG/5 ML SYR IV ONE
[2022-12-11] MEDS: CATHETER FLUSH 10 ML SYR IVP PRN ×2 (11:15→12:59)
[2022-12-11 12:57] VITALS: BP 131/69
--- NOTE | 2022-12-13 19:29 | STRESS TEST ---
DATE OF SERVICE: 12/11/2022 RESTING AND POST REGADENOSON TECHNETIUM-99M TETROFOSMIN SPECT CT IMAGING CLINICAL DIAGNOSIS: Coronary artery disease. Baseline images were carried out after injection of 10 mCi of technetium-99m tetrofosmin. This was followed by 0.4 mg regadenoson and 29.7 mCi of technetium-99m tetrofosmin for stress imaging. The electrocardiogram showed sinus rhythm at baseline. The electrocardiogram did not change significantly with regadenoson infusion. Review of images at rest and following stress does not indicate any significant perfusion defects consistent with myocardial ischemia or infarction. Gated images show normal global left ventricular systolic function with normal regional wall motion. Left ventricular ejection fraction is calculated to be 56%. CONCLUSIONS: 1. No evidence of significant myocardial ischemia or infarction on this study. 2. Normal regional wall motion. 3. Normal global left systolic function with a calculated ejection fraction of 56%. Job ID: [id number] DocumentID: [id number] Dictated Date: 12/13/2022 16:39:52 Sample Card Maker Date: 12/13/2022 19:28:00 Dictated By: GREGG DANG MD; MA; FACP; FACC;
== END ==
LOC: CARD 11:00
PROVIDERS: ATTEND Internal Medicine Cardiovascular Disease
DX: I25.10 Atherosclerotic heart disease of native coronary artery without angina pectoris (principal); Z95.1 Presence of aortocoronary bypass graft
CPT/HCPCS: 78452; 93017; A9502